=== PATIENT | male | born 1960 | race Caucasian/White ===

== ENCOUNTER 2021-09-11 13:50 | Outpatient (CLI) | payer OTHER, SELFPAY ==
--- NOTE | 2021-09-11 14:25 | ECG_ITS ---
Measurements Intervals [place] Rate: 78 P: 52 MD: 162 QRS: -63 QRSD: 141 T: 17 QT: 403 QTc: 459 Interpretive Statements SINUS RHYTHM RIGHT BUNDLE BRANCH BLOCK LEFT ANTERIOR FASCICULAR BLOCK BASELINE ARTIFACT- I, II, III, AVR, AVL ABNORMAL ECG Electronically Signed On 09-11-2021 15:45:59 CDT by Indio Dias D.O.
[2021-09-11 14:49] LABS: Basophils Percent Auto 0.7 % (0.2-1.2); Eosinophils Absolute Auto 0.3 K/mm3 (0-0.3); Eosinophils Percent Auto 4.8 % (0-4.4); Hematocrit 47.5 % (42.0-52.0); Hemoglobin 16.5 g/dL (14.0-18.0); Immature Granulocyte Absolute 0.03 K/mm3 (0.00-0.031); Immature Granulocyte Percent A 0.5 % (0-0.5); Lymphocytes Absolute Auto 2.07 K/mm3 (0.9-3.2); Lymphocytes Percent Auto 35.8 % (18.3-44.2); Mean Corpuscular HGB Conc 34.7 g/dl (32-36); Mean Corpuscular Hemoglobin 31.6 pg (26-34); Mean Platelet Volume 8.8 fl (7.4-10.4); Monocytes Absolute Auto 0.6 K/mm3 (0.1-0.6); Monocytes Percent Auto 10.7 % (2.6-8.5); Neutrophils Absolute Auto 2.8 K/mm3 (1.3-6.7); Neutrophils Percent Auto 47.5 % (45.5-73.1); Platelet Count Result 193 k/mm3 (150-375); Red Blood Count 5.22 M/mm3 (4.6-6.20); Red Cell Distribution Width 13.5 % (11.5-14.5); White Blood Count 5.8 K/mm3 (4.5-10.0)
[2021-09-11 14:57] LABS: Hemoglobin A1C 5.5 % (<5.7)
[2021-09-11 14:59] LABS: Urine Cotinine NEGATIVE
[2021-09-11 15:09] LABS: Albumin Level 4.5 g/dL (3.5-5.1); Anion Gap 7 mmol/L (8-16); Blood Urea Nitrogen 16 mg/dL (9-20); Calcium 9.3 mg/dL (8.4-10.2); Carbon Dioxide 28 mmol/L (22-30); Chloride 104 mmol/L (98-107); Estimated Glomerular Filt Rate > 60; Glucose 164 mg/dL (65-110); Potassium 4.3 mmol/L (3.4-5.0); Sodium 139 mmol/L (137-145)
== END 2021-09-11 13:51 | disposition home or self-care (01) ==
LOC: ANHSURGERY 13:56
PROVIDERS: PCP Family Medicine; Visit Provider Orthopaedic Surgery
DX: M17.12 Unilateral primary osteoarthritis, left knee (principal); Z01.818 Encounter for other preprocedural examination; I45.10 Unspecified right bundle-branch block; I44.4 Left anterior fascicular block
CPT/HCPCS: 80048; 80307; 82040; 83036; 85025; 87070; 93005

== ENCOUNTER 2021-09-26 00:58 | Day surgery (SDC) | payer OTHER, SELFPAY ==
[2021-09-11 14:12] VITALS: BP 156/80; PULSE 84; RESP 20; TEMP 36.7; O2SAT 97; BMI 34.7
--- NOTE | 2021-09-25 15:38 | P.PNAN_ITS ---
Anes - Initial Pre Proc Eval Procedure: Operation Date: 09/26/21 12:00 Proposed Procedures p Left Total Knee Arthroplasty - Devyn Montana MD Date/Time: 09/25/21 15:38 Surgeon: Devyn Montana MD Pre Op Diagnosis: OA left knee Patient Data Age: 61 Gender: M Height: 1.83 m Weight: 116.3 kg Last Vital Signs Temp 36.7 C 09/11/21 14:12 Pulse 84 09/11/21 14:12 Resp 20 09/11/21 14:12 BP 156/80 H 09/11/21 14:12 Pulse Ox 97 09/11/21 14:12 Allergies Allergy/AdvReac Type Severity Reaction Status Date / Time amoxicillin Allergy Unknown HIVES AND Verified 09/26/21 10:04 RASH Home Medications Medication Instructions Recorded Confirmed Type amlodipine 10 mg PO HS 09/11/21 09/26/21 History lisinopril 30 mg PO QAM 09/11/21 09/26/21 History ECG: Date of Service: 09/11/21 Procedure(s): CA 12 lead EKG Accession Number(s): [id number] cc: ~ Measurements Intervals [place] Rate: 78 P: 52 [place]: 162 QRS: -63 QRSD: 141 T: 17 QT: 403 QTc: 459 Interpretive Statements SINUS RHYTHM RIGHT BUNDLE BRANCH BLOCK LEFT ANTERIOR FASCICULAR BLOCK BASELINE ARTIFACT- I, II, III, AVR, AVL ABNORMAL ECG Electronically Signed On 09-11-2021 15:45:59 CDT by Indio Dias D.O. Patient hx anesthesia problems: none Family hx anesthesia problems: none Results Review: All pre-operative results and documents have been reviewed as part of the pre-operative evaluation. [facility] Past Medical History Medical History HTN (hypertension) Obesity Osteoarthritis Social History Social History Smoking status: Never smoker Second hand tobacco smoke exposure: No Additional smoking assessment comments: DENIES ALL FORMS OF TOBACCO USE Alcohol intake: current Drinks per week: 3 Substance use: never Living arrangements: with family Spiritual care concerns: No Anes - Eval Final PreProcedure Day of Procedure 09/25/21 15:38 Patient weight: obese Heart: regular rate and rhythm Lungs: clear to auscultation and normal air movement Airway: Mallampati scale class II Neurological: alert and oriented Last oral intake: >/= 8 hours ASA classification: III Emergent: no Anesthetic plan: proceed Anesthesia type and monitoring: general ETT Results Review: All pre-operative results and documents have been reviewed as part of the pre-operative evaluation. Informed Consent: The patient's anesthetic plan and its attendant risks and benefits were discussed with the patient/family/POA. Questions were solicited and answers provided to the satisfaction of the patient/family/POA.
[2021-09-26] VITALS (12 sets, daily range): BP systolic 138–148; BP diastolic 67–99; PULSE 81–102; RESP 13–20; TEMP 36.3–36.9; O2SAT 92–99
--- NOTE | ~2021-09-26 | XR_ITS ---
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 Subcutaneous gas with fluid and air in the joint are consistent with recent surgery. No evidence of periprosthetic fracture. IMPRESSION: 1. Recent left total knee arthroplasty. Reviewed, dictated and finalized at location A. T DEMONSTRATOR
--- NOTE | 2021-09-26 07:44 | PM.IMHP ---
H&P: HPI History of Present Illness Date/Time: 09/26/21 07:44 61 y/o patient of Dr. Meek who presents today for left total knee arthroplasty. Patient is approximately 4 1/2 years out from right total knee arthroplasty which is doing very well. He has severe medial compartment arthritis in left knee which continues to be very painful for him. He has had injections the last 1 being almost 6 months ago. It lasted for about week. He has taking gkgb-pao-vuguujc anti-inflammatories without his symptoms. He has ldjs-er-hjgd arthritis compartment the left knee. Patient feels this point is ready to proceed with total knee arthroplasty. Chief Complaint: left knee DJD Review of Systems Review of Systems: All systems reviewed & are unremarkable except as noted in HPI and below PMFSH Past Medical History Medical History HTN (hypertension) Obesity Osteoarthritis Social History Social History Smoking status: Never smoker Second hand tobacco smoke exposure: No Additional smoking assessment comments: DENIES ALL FORMS OF TOBACCO USE Alcohol intake: current Drinks per week: 3 Substance use: never Living arrangements: with family Spiritual care concerns: No Meds Home Medications and Allergies Home Medications Medication Instructions Recorded Confirmed Type amlodipine 10 mg PO HS 09/11/21 09/11/21 History lisinopril 30 mg PO QAM 09/11/21 09/11/21 History Allergies Allergy/AdvReac Type Severity Reaction Status Date / Time amoxicillin Allergy Unknown HIVES AND Verified 09/11/21 14:10 RASH Exam Narrative: 61-year-old male alert pleasant. He is 5 ft 11 258 lb. Left knee range of motion is from 0-130 degrees. He has moderate effusion. Normal stability in the knee. Moderate medial joint line tenderness. Normal sensation his left lower extremity. Trace pedal edema bilaterally. 2+ dorsalis pedis and posterior tibial artery pulse palpable. Hip range of motion is full without discomfort. Normal quad strength. Negative Stinchfield maneuver. Resp: Auscultation: clear to auscultation bilaterally Cardio: Rate: regular rate Rhythm: regular rhythm Assessment and Plan Additional Plan 61-year-old male who has severe medial compartment arthritis in left knee with continued symptoms. He has not improved with nonsurgical treatment and feels at this point he is ready to proceed with total knee arthroplasty as he has had this on the opposite side little more than 4 years ago. Surgical procedure as well as the risks and complications were discussed in detail and all questions were answered. He will see his primary care doctor for pre-surgical clearance. He will avoid any aspirin or ibuprofen products 1 prior to surgery. Patient has an allergy to oxycodone we will plan use Vicodin as well as Celebrex for pain control postoperatively. He will use Eliquis as well for DVT prophylaxis. His nasal swab was negative. Chem panel is all within normal limits, creatinine is 0.80. Hemoglobin 16.5 and platelets were 193.
[2021-09-26] MEDS: LACTATED RINGERS 1,000 ML 30 ML IV CONT ×2 (10:20→16:45)
[2021-09-26] MEDS: TRANEXAMIC ACID 1,000MG/ISO100 1,000 MG/100 ML BAG 200 MG IVPB (10:33)
[2021-09-26] MEDS: ACETAMINOPHEN 500 MG TABLET 1000 MG PO (10:35)
--- NOTE | 2021-09-26 11:41 | WPDHPUPDATE1 ---
History and Physical Update Update Date/Time: 09/26/21 11:41 History and Physical has been reviewed, including an updated exam of the patient. There are NO changes in the patient's condition. Risks, benefits, and alternatives have been discussed and questions answered. Patient agrees to proceed with procedure.
[2021-09-26] MEDS: ceFAZolin 2 GM/D5W 50 ML 2 GM/50 ML BAG IVPB (12:58)
[2021-09-26] MEDS: ceFAZolin SODIUM 1 GM VIAL 3 GM IRRIGATION (13:38)
[2021-09-26] MEDS: GENTAMICIN BONE CEMENT REFOBACIN 1 EACH TOPICAL (15:35)
[2021-09-26] MEDS: ceFAZolin SODIUM 1 GM VIAL IV PUSH (15:46)
[2021-09-26] MEDS: TRANEXAMIC ACID 1,000 MG/10 ML AMPUL 1000 MG IV PUSH (15:46)
--- NOTE | 2021-09-26 16:39 | W.PM.PROC2 ---
Procedure Note - Detailed Date of Procedure 09/26/21 Pre-op Diagnosis OA left knee Post-op Diagnosis same Procedure Performed Patient was brought to the operating room and general anesthesia was administered. The left knee was prepped draped usual fashion. He received 2 g of Ancef weight based vancomycin 1 g of tranexamic acid preoperatively. The had the full range of motion maybe a couple degrees of hyperextension on the table with some mediolateral laxity in extension. The limb was exsanguinated and tourniquet elevated to 300 mmHg. This gentleman had a cruciate retaining attune knee replacement done 4 and half years ago at [facility] and requested that we use the same components as the ended up with superb range of motion and stability. A 7 in longitudinal midline incision was used the vastus medialis splitting approach utilized splitting the vastus medialis at the level of superior pole of the patella. The patella measured 26.5 mm in thickness and was cut to 17 mm. Protector cap applied. A guide raquel was inserted down the femoral canal for aspiration of canal contents using the 5 degree valgus cutting bushing 8 mm of bone removed the distal femur. This removed about 6 laterally. There was eburnation of the medial femoral condyle. Next the tibial plateau was cut. We tried to cut the tibia at approximately 3-5 degrees of posterior slope to match his anatomy. This was a skim cut just under the subchondral bone of the low point of the where area of the medial tibial plateau and this removed about 8 mm from the lateral side. Meniscal remnants were excised. He did not have a significant varus deformity so we did not release medial capsule from tibia but we did remove some of the osteophyte that was overhanging into the MCL. The knee accepted the 10 mm spacer block in extension with a little bit of play but lacking just a bit of full extension. In flexion the medial side accepted a 8 mm spacer the lateral side tight with the 12. The attune femoral sizing guide was placed on the distal femur set at 3? of external rotation which matched [place] line. Posterior referencing pinholes were applied. The 7 block was the proper width but was going to notch. I cut it to the 8 and this confirmed that we were going to get a little bit of a notch with the 7 the less I introduced a couple degrees of flexion on the distal femoral cut which we did and then we applied the size 7 block and recut the anterior cut which was appropriate , posterior and chamfer cuts were made. Bone quality was excellent everywhere. We trialed and we seemed to have the proper ligament tension with the 6 mm trial poly. The tibia was sized to the size attune 6. Rotation was set reference to the 2nd metatarsal tibial tubercle the anterior cortex. This fit line to line posterolateral to anteromedial and it was felt that the size 7 would overhang. This was punched after we confirmed that there was no rocking of the tibial tray on the plateau. Alignment was confirmed to be appropriate. We trialed and the 6 mm insert allowed full extension with no bounce. We had removed the posterior femoral osteophyte and cut the bone out for the sulcus using the sulcus guide previously. Was 1 mm medial 1 mm lateral opening in extension. At 90? of flexion the femur rested in the dwell point of the tibial plateau so we did not have excessive tightness of the PCL. No release of the PCL was performed on this knee. [place] flexion was to 135 without lift off. Anterior drawer was rock-solid that 130?. Satisfied with this we drilled the lug holes in the femoral trial. We were at 105 minutes approximately on the tourniquet and I did not feel we would have enough time to properly prepare the patella and complete see mentation under 120 minutes therefore we put the tourniquet down at this time and directed our attention to the patella. The patella was a little smaller. The 38 patella was going to overhang we arlyn
--- NOTE | 2021-09-26 18:14 | PC.NURSE ---
This patient, Mac Eastman, was admitted to 2 Medical Room 240-01. Patient/family oriented to hospital policies and general routines including ID bracelet, bed and alarms, visiting hours, pain management, procedures, bathroom and other care routines, personal items, smoking policy, room service/diet, and visiting hours. Information on how to activate the Rapid Response Team has been discussed. Patient/Family are encouraged to report perceived risks to care and to ask questions if they do not understand what they are told or what they should do.
[2021-09-26] MEDS: HYDROcodone/acetaminophen (*CRX) 5-325 MG TABLET 1 TAB PO ×2 (19:58→21:21)
[2021-09-26] MEDS: amLODIPine BESYLATE 5 MG TABLET 10 MG PO (21:22)
[2021-09-27 00:52] VITALS: O2SAT 94
[2021-09-27] MEDS: HYDROcodone/acetaminophen (*CRX) 5-325 MG TABLET 1 TAB PO ×4 (01:05→13:31)
[2021-09-27 02:53] VITALS: BP 132/82; PULSE 94; RESP 20; TEMP 36.6; O2SAT 98
[2021-09-27 06:17] LABS: Anion Gap 8 mmol/L (8-16); Blood Urea Nitrogen 19 mg/dL (9-20); Calcium 8.3 mg/dL (8.4-10.2); Carbon Dioxide 22 mmol/L (22-30); Chloride 104 mmol/L (98-107); Estimated CRCL calculation 96 ml/min; Estimated Glomerular Filt Rate > 60; Glucose 155 mg/dL (65-110); Potassium 4.1 mmol/L (3.4-5.0); Sodium 134 mmol/L (137-145)
[2021-09-27 06:31] LABS: Basophils Percent Auto 0.2 % (0.2-1.2); Hematocrit 39.2 % (42.0-52.0); Hemoglobin 13.4 g/dL (14.0-18.0); Immature Granulocyte Absolute 0.08 K/mm3 (0.00-0.031); Immature Granulocyte Percent A 0.6 % (0-0.5); Lymphocytes Absolute Auto 2.15 K/mm3 (0.9-3.2); Lymphocytes Percent Auto 17.3 % (18.3-44.2); Mean Corpuscular HGB Conc 34.2 g/dl (32-36); Mean Corpuscular Hemoglobin 30.7 pg (26-34); Mean Corpuscular Volume 89.9 fl (80-100); Mean Platelet Volume 9.1 fl (7.4-10.4); Monocytes Absolute Auto 1.1 K/mm3 (0.1-0.6); Monocytes Percent Auto 9.1 % (2.6-8.5); Neutrophils Percent Auto 72.8 % (45.5-73.1); Platelet Count Result 198 k/mm3 (150-375); Red Blood Count 4.36 M/mm3 (4.6-6.20); Red Cell Distribution Width 13.5 % (11.5-14.5); White Blood Count 12.4 K/mm3 (4.5-10.0)
--- NOTE | 2021-09-27 06:48 | PM.PNORT ---
Progress Note: A&P Additional Plan Postop day 1 patient is alert. Afebrile vital signs are stable. His pain is very well controlled. He was up to a chair last night for about an hour this was comfortable for him. His dressing is dry. Neurovascularly is intact. He has just mild swelling in the knee. No swelling in the lower extremities. Morning labs were noted and all stable. We will plan to have the patient work with therapy 2 times today and if he continues to do well we will plan on sending him home this afternoon. Subjective Subjective Date/Time Seen: 09/27/21 06:48 Objective Data Vital Signs Vital Signs: Vital Signs - 24 hr 09/26/21 09:55 09/26/21 16:50 09/26/21 17:05 Temperature 36.9 C 36.4 C L Pulse Rate 81 100 95 Respiratory Rate 13 15 Blood Pressure 142/96 H 143/89 H 140/78 Pulse Oximetry 98 93 96 09/26/21 17:20 09/26/21 17:23 09/26/21 17:35 Temperature 36.4 C Pulse Rate 95 100 98 Respiratory Rate 15 16 16 Blood Pressure 138/94 H 138/89 146/94 H Pulse Oximetry 98 93 97 09/26/21 17:49 09/26/21 17:53 09/26/21 18:19 Temperature 36.6 C Pulse Rate 98 85 Respiratory Rate 20 16 Blood Pressure 148/99 H 145/67 H Pulse Oximetry 92 99 98 09/26/21 18:53 09/26/21 20:00 09/26/21 22:53 Temperature 36.6 C 36.3 C L Pulse Rate 92 102 H Respiratory Rate 16 20 Blood Pressure 141/72 H 145/96 H Pulse Oximetry 99 99 98 09/27/21 00:52 09/27/21 02:53 Temperature 36.6 C Pulse Rate 94 Respiratory Rate 20 Blood Pressure 132/82 Pulse Oximetry 94 98 Intake/Output Intake/Output: Intake & Output 09/24/21 09/25/21 09/26/21 09/27/21 23:59 23:59 23:59 23:59 Intake Total 1750 350 Balance 1750 350 Meds/Results Medications: Active Medications Generic Name Dose Route Start Last Admin Trade Name Freq PRN Reason Stop Dose Admin Hydrocodone Bitart/Acetaminophen 1 tab 09/26/21 17:11 09/26/21 19:58 Hydrocodone/Acetaminophen (*Crx) 5-325 Mg Tablet PO 1 tab Q4H PRN Administration Pain Rated 4-6 Hydrocodone Bitart/Acetaminophen 1 tab 09/26/21 21:00 09/27/21 05:20 Hydrocodone/Acetaminophen (*Crx) 5-325 Mg Tablet PO 1 tab Q4HR LORA Administration Amlodipine Besylate 10 mg 09/26/21 21:00 09/26/21 21:22 Amlodipine Besylate 5 Mg Tablet PO 10 mg HS LORA Administration Apixaban 2.5 mg 09/27/21 09:00 Apixaban 2.5 Mg Tablet PO Q12HR LORA Celecoxib 200 mg 09/27/21 08:00 Celecoxib 200 Mg Capsule PO DAILY@0800 LORA Cefazolin Sodium 1 gm in 50 mls @ 100 mls/hr 09/26/21 21:00 09/27/21 05:50 Ancef 1 Gm/D5w 50 Ml Pm IVPB 09/27/21 13:29 Infused Q8H [facility] Infusion Vancomycin HCl 1,000 mg in 250 mls @ 250 mls/hr 09/26/21 23:00 09/27/21 00:42 Vancomycin 1,000 Mg/D5w 250 Ml IVPB 09/27/21 11:59 Infused Q12H [facility] Infusion Lisinopril 30 mg 09/27/21 09:00 Lisinopril 10 Mg Tablet PO QAM LORA Morphine Sulfate 2 mg 09/26/21 17:06 Morphine Sulfate (*Crx) 2 Mg/Ml Inj IV PUSH Q1H PRN Pain Rated 7-10 Naloxone HCl 0.1 mg 09/26/21 17:06 Naloxone Hcl 0.4 Mg/Ml Vial IV PUSH Q2M PRN Opiate Reversal Ondansetron HCl 4 mg 09/25/21 15:37 Ondansetron Inj 4 Mg/2 Ml Vial IV PUSH ONCE PRN Nausea Polyethylene Glycol 17 gm 09/27/21 09:00 Polyethylene Glycol 3350 17 Gm Powd.Pack PO QAM LORA Senna/Docusate Sodium 2 tab 09/27/21 09:00 Senna/Docusate Sodium Tablet PO BID [facility] Radiology Results: ITS Impressions Knee X-Ray 09/26/21 17:00 IMPRESSION: 1. Recent left total knee arthroplasty. Labs Labs: Laboratory Results - last 24 hr 11/09/0609/27/21 09/27/21 10:30 05:15 05:15 WBC 12.4 H RBC 4.36 L Hgb 13.4 L D Hct 39.2 L MCV 89.9 MCH 30.7 MCHC 34.2 RDW 13.5 Plt Count 198 MPV 9.1 Immature Gran % (Auto) 0.6 H Neut % (Auto) 72.8 Lymph % (Auto) 17.3 L [place] % (Auto) 9.1 H Eos % (Auto) 0.
[2021-09-27 06:53] VITALS: BP 123/83; PULSE 88; RESP 18; TEMP 36.4; O2SAT 97
--- NOTE | 2021-09-27 06:57 | PM.DS ---
DS: Admitting Diagnosis Discharge Date 09/26 Admitting Diagnosis left knee DJD DS: Summary Hospital Course Hospital Course: stable Time Spent with Patient Time attestation: Total time spent providing and/or coordinating discharge services: 61-year-old male who underwent left total knee arthroplasty on 09/26. Underwent the procedure without any complications. Postoperatively he has been afebrile vital signs were stable neurovascular intact. He is weight-bearing as tolerated. He has a Mepilex dressing over his knee. It is dry. His pain is well controlled with Celebrex 200 mg daily as well as hydrocodone 5 mg. Patient has an allergy/reaction to oxycodone so we are not using that. He is on Eliquis for DVT prophylaxis. Postop day 1 patient was alert get his pain is well controlled. He is comfortable. We are going to have patient work with therapy he continued to well plan discharge him home on 09/27. Will also go home on Senokot and MiraLax. He has outpatient therapy starting next Friday. Patient was advised to keep leg elevated but also do his exercises on a regular basis. He has had a right knee replacement in the past he is well aware the recovery and the exercises. He was advised of any questions or concerns he should call the office otherwise we will see him at his appointment date. DS: Data Data Completed and Pending Labs on day of discharge: Labs from last 24 hours 09/27/21 09/27/21 09/26/21 05:15 05:15 10:30 WBC 12.4 H RBC 4.36 L Hgb 13.4 L D Hct 39.2 L MCV 89.9 MCH 30.7 MCHC 34.2 RDW 13.5 Plt Count 198 MPV 9.1 Immature Gran % (Auto) 0.6 H Neut % (Auto) 72.8 Lymph % (Auto) 17.3 L [place] % (Auto) 9.1 H Eos % (Auto) 0.0 Baso % (Auto) 0.2 Lymph # (Auto) 2.15 [place] # (Auto) 1.1 H Eos # (Auto) 0.0 Baso # (Auto) 0.0 Abs Immat Gran (auto) 0.08 H Absolute Neuts (auto) 9.0 H Absolute Nucleated RBC 0.0 Nucleated RBC % 0.0 Sodium 134 L Potassium 4.1 Chloride 104 Carbon Dioxide 22 Anion Gap 8 BUN 19 Creatinine 0.90 Estim Creat Clear Calc 96 Estimated GFR > 60 Glucose 155 H Calcium 8.3 L Blood Type O Positive Antibody Screen Negative Discharge Plan Discharge Patient Disposition: Home, Self-Care Discharge Instructions: DEVYN MONTANA [facility], [facility] [address] [place] [address] POST-OPERATIVE DISCHARGE INSTRUCTIONS TOTAL KNEE ARTHROPLASTY 1. When resting, lie on back with leg elevated above hear to minimize swelling. Significant swelling could indicate a blood clot and if this occurs call the office (or go to the ER) to have a venous ultrasound. 2. Do exercise 5 times a day. 3. Do not sit with leg down except for meals. 4. Wound Care: Nursing will give additional dressings at discharge. Patient to change dressing at home 1 week from surgery, then maintain until seen in office. 5. May shower with dressing in place. 6. Follow weight bearing status instructions. 7. Limit sitting in a chair with leg down to 30 minutes at a time 3 times a day. Patient Instructions: Apixaban (By mouth), Precautions after Total Joint Replacement Surgery (DC) Follow-up/Referrals: Devyn Montana MD [Physician] - Keep Reg. Scheduled Appt. Discharge Medications: New Eliquis 2.5 mg Tablet 2.5 mg PO Q12HR Qty: 27 RF: 0 celecoxib [Celebrex] 200 mg Capsule 200 mg PO DAILY@0800 Qty: 60 RF: 0 polyethylene glycol 3350 [Miralax] 17 gram Powder In Packet 17 g PO QAM Qty: 30 RF: 0 hydrocodone-acetaminophen 5-325 mg Tablet 1 tablet PO Q4HR Qty: 50 RF: 0 sennosides-docusate sodium [Senokot-S] 8.6-50 mg Tablet 2 tab PO BID Qty: 60 RF: 0 Continued amlodipine 10 mg tablet 10 mg PO HS RF: 0 lisinopril 30 mg tablet 30 mg PO QAM RF: 0
--- NOTE | 2021-09-27 07:54 | P.PNAN_ITS ---
Anes - Prog Note Post-Op Date/Time: 09/27/21 07:54 Cardiovascular status: normal Respiratory status: normal Airway patency: baseline Mental status: baseline Post-Op hydration status: normal Vital Signs: Last Vital Signs Temp 36.6 C 09/27/21 02:53 Pulse 94 09/27/21 02:53 Resp 20 09/27/21 02:53 BP 132/82 09/27/21 02:53 Pulse Ox 98 09/27/21 02:53 Pain Score (VAS): 4 I/O: Intake & Output 09/26/21 09/26/21 09/27/21 15:59 23:59 07:59 Intake Total 650 1100 350 Balance 650 1100 350 Laboratory Tests 09/27/21 05:15 09/27/21 05:15 09/26/21 09/27/21 09/27/21 10:30 05:15 05:15 WBC 12.4 H RBC 4.36 L Hgb 13.4 L D Hct 39.2 L MCV 89.9 MCH 30.7 MCHC 34.2 RDW 13.5 Plt Count 198 MPV 9.1 Immature Gran % (Auto) 0.6 H Neut % (Auto) 72.8 Lymph % (Auto) 17.3 L [place] % (Auto) 9.1 H Eos % (Auto) 0.0 Baso % (Auto) 0.2 Lymph # (Auto) 2.15 [place] # (Auto) 1.1 H Eos # (Auto) 0.0 Baso # (Auto) 0.0 Abs Immat Gran (auto) 0.08 H Absolute Neuts (auto) 9.0 H Absolute Nucleated RBC 0.0 Nucleated RBC % 0.0 Sodium 134 L Potassium 4.1 Chloride 104 Carbon Dioxide 22 Anion Gap 8 BUN 19 Creatinine 0.90 Estim Creat Clear Calc 96 Estimated GFR > 60 Glucose 155 H Calcium 8.3 L Blood Type O Positive Antibody Screen Negative Post-procedural complaints: none Patient Feedback: Patient satisfied with anesthetic care.
[2021-09-27 08:13] VITALS: BP 125/85; PULSE 100; RESP 16; TEMP 36.9; O2SAT 97
[2021-09-27] MEDS: APIXABAN 2.5 MG TABLET PO (08:15)
[2021-09-27] MEDS: SENNA/DOCUSATE SODIUM TABLET 2 TAB PO (08:15)
[2021-09-27] MEDS: CELECOXIB 200 MG CAPSULE PO (08:15)
[2021-09-27] MEDS: lisinopriL 10 MG TABLET 30 MG PO (08:16)
[2021-09-27] MEDS: polyethylene glycoL 3350 17 GM POWD.PACK PO (08:16)
[2021-09-27 09:20] VITALS: O2SAT 97
== END 2021-09-27 14:28 | disposition home or self-care (01) ==
LOC: ANHSURGERY 10:40 → ANH2MED 18:04
PROVIDERS: PCP Family Medicine; Visit Provider Orthopaedic Surgery
PROC: (CPT 27447; principal; 2021-09-26 12:00)
DX: M17.12 Unilateral primary osteoarthritis, left knee (principal); Z23 Encounter for immunization; I10 Essential (primary) hypertension; E66.9 Obesity, unspecified; Z68.33 Body mass index [BMI] 33.0-33.9, adult
CPT/HCPCS: 27447; 36415; 73560; 80048; 80307; 82040; 83036; 85025; 86850; 86900; 86901; 87070; 90471; 90653; 93005; 97110; 97116; 97161; 97165; A9270; C1713; C1776; G0008; J0171; J0330; J0690; J1100; J1170; J1885; J2250; J2270; J2405; J2704; J2795; J3010; J3370; J7120